=== PATIENT | female | born 1945 | race Caucasian/White ===

== ENCOUNTER 2023-05-14 10:32 | Inpatient (IN) | payer MEDICARE ==
[~2023-05-14] VITALS: Ht 160 cm; Wt 51.7 kg
[2023-05-14] MEDS ORDERED: ATOR10TA PO (11:11)
[2023-05-14] MEDS ORDERED: AMLO2.5T2 PO (11:11)
[2023-05-14] MEDS ORDERED: IV NORMAL SALINE 1000 ML BAG IV ONE (11:15)
[2023-05-14 11:31] LABS: BASOPHILS % (AUTO) 0.2 % (0.0-2.0); EOSINOPHILS % (AUTO) 0.2 % (0.0-7.0); HEMATOCRIT 45.8 % (31.2-41.9); HEMOGLOBIN 15.4 g/dL (10.9-14.3); LYMPHOCYTES # (AUTO) 1.2 K/uL (0.8-4.8); LYMPHOCYTES % (AUTO) 10.1 % (20.5-51.5); MEAN CORPUSCULAR HEMOGLOBIN 31.5 uug (24.7-32.8); MEAN CORPUSCULAR HGB CONC 34 g/dL (32.3-35.6); MEAN CORPUSCULAR VOLUME 93.8 fL (75.5-95.3); MONOCYTES # (AUTO) 0.9 K/uL (0.1-1.30); MONOCYTES % (AUTO) 7.8 % (0.0-11.0); NEUTROPHILS # (AUTO) 9.9 K/uL (1.8-8.9); NEUTROPHILS % (AUTO) 81.7 % (38.5-71.5); PLATELET COUNT (AUTO) 320 K/uL (179-408); RED BLOOD CELL COUNT(AUTO) 4.88 MIL/uL (3.63-4.92); RED CELL DISTRIBUTION WIDTH 14.3 % (12.3-17.7); WHITE BLOOD COUNT (AUTO) 12.1 K/uL (3.8-11.8)
[2023-05-14 11:39] LABS: DIFFERENTIAL COMMENT 1
[2023-05-14 11:41] LABS: CALCIUM 9.4 mg/dL (8.5-10.1); CARBON DIOXIDE 28 mmol/L (21-32); CHLORIDE 96 mmol/L (98-107); CREATININE 0.9 mg/dL (0.6-1.3); GLUCOSE 118 mg/dL (74-106); POTASSIUM 3.5 mmol/L (3.5-5.1); SODIUM SERUM 135 mmol/L (136-145); UREA NITROGEN, BLOOD 31 mg/dL (7-18)
[2023-05-14 12:03] LABS: ALANINE AMINOTRANSFERASE 17 U/L (14-59); ALKALINE PHOSPHATASE 82 U/L (50-136); ASPARTATE AMINOTRANSFERASE 20 U/L (15-37); BILIRUBIN,DIRECT 0.5 mg/dL (0.0-0.2); BILIRUBIN,TOTAL 2.2 mg/dL (0.2-1.0); LIPASE 42 U/L (16-77); TOTAL PROTEIN, SERUM 7.9 g/dL (6.4-8.2)
[2023-05-14] MEDS ORDERED: hydrALAZINE HCL 20 MG/1 ML VIAL ONE (14:38)
[2023-05-14] MEDS ORDERED: hydrALAZINE HCL 20 MG/1 ML VIAL IV ONE (14:45)
[2023-05-14] MEDS ORDERED: ONDANSETRON 4 MG/2 ML VIAL ONE (15:52)
[2023-05-14] MEDS ORDERED: MORPHINE SULFATE 4 MG/1 ML DISP.SYRIN ONE (15:52)
[2023-05-14] MEDS ORDERED: ONDANSETRON 4 MG/2 ML VIAL IV ONE (16:00)
[2023-05-14] MEDS ORDERED: MORPHINE SULFATE 4 MG/1 ML DISP.SYRIN IV STA (16:01)
[2023-05-14] MEDS ORDERED: ACETAMINOPHEN 650 MG SUPP.RECT RC PRN (18:00)
[2023-05-14] MEDS ORDERED: PIPERACILLIN SODIUM/TAZOBACTAM 3.375 G in IV DEXTROSE 5% 50 ML IV SCH (18:00)
[2023-05-14] MEDS ORDERED: ONDANSETRON 4 MG/2 ML VIAL IV PRN (18:00)
[2023-05-14] MEDS ORDERED: PIPERACILLIN SODIUM/TAZOBACTAM 3.375 G in IV DEXTROSE 5% 100 ML IV SCH (22:00)
[2023-05-14] MEDS ORDERED: PIPERACILLIN/TAZOBACTAM/D5W 50 ML IV ONE (23:31)
[2023-05-14] MEDS ORDERED: IV D5W-0.45% NS +20 KCL 1,000 ML IV ONE (23:32)
[2023-05-14] MEDS: POTASSIUM CHLORIDE 20 MEQ in IV D5 1/2 NS 1000 ML 1,000 ML IV PRN (23:49)
[2023-05-15] VITALS (11 sets, daily range): BP systolic 113–156; BP diastolic 48–87; TEMP 98–98.7; O2SAT 95–100
[2023-05-15 03:12] LABS: *BLOOD, URINE NEGATIVE (NEGATIVE); *CLARITY,URINE CLEAR (CLEAR); *COLOR,URINE YELLOW (YELLOW); *KETONES,URINE 1+ (NEGATIVE); *PROTEIN,URINE 1+ (NEGATIVE); *UROBILINOGEN,URINE 0.2 E.U./dl (NORMAL); LEUKOCYTE ESTERASE ,URINE NEGATIVE (NEGATIVE); NITRITE, URINE NEGATIVE (NEGATIVE); UGLUCOSE NEGATIVE (NEGATIVE)
[2023-05-15 04:07] LABS: *BILIRUBIN,URIN 1+ (NEGATIVE)
[2023-05-15 07:12] LABS: BASOPHILS % (AUTO) 0.4 % (0.0-2.0); EOSINOPHILS # (AUTO) 0.1 K/uL (0.0-0.7); EOSINOPHILS % (AUTO) 0.7 % (0.0-7.0); HEMATOCRIT 39.3 % (31.2-41.9); HEMOGLOBIN 13.2 g/dL (10.9-14.3); LYMPHOCYTES # (AUTO) 1.1 K/uL (0.8-4.8); LYMPHOCYTES % (AUTO) 13.3 % (20.5-51.5); MEAN CORPUSCULAR HEMOGLOBIN 31.7 uug (24.7-32.8); MEAN CORPUSCULAR HGB CONC 34 g/dL (32.3-35.6); MONOCYTES # (AUTO) 0.8 K/uL (0.1-1.30); MONOCYTES % (AUTO) 9.2 % (0.0-11.0); NEUTROPHILS # (AUTO) 6.6 K/uL (1.8-8.9); NEUTROPHILS % (AUTO) 76.4 % (38.5-71.5); PLATELET COUNT (AUTO) 265 K/uL (179-408); RED BLOOD CELL COUNT(AUTO) 4.18 MIL/uL (3.63-4.92); RED CELL DISTRIBUTION WIDTH 14.2 % (12.3-17.7); WHITE BLOOD COUNT (AUTO) 8.6 K/uL (3.8-11.8)
[2023-05-15 07:18] LABS: DIFFERENTIAL COMMENT 1
[2023-05-15 07:40] LABS: ALANINE AMINOTRANSFERASE 17 U/L (14-59); ALKALINE PHOSPHATASE 57 U/L (50-136); ASPARTATE AMINOTRANSFERASE 14 U/L (15-37); CALCIUM 8.6 mg/dL (8.5-10.1); CARBON DIOXIDE 25 mmol/L (21-32); CHLORIDE 105 mmol/L (98-107); CHOLESTEROL 128 mg/dL (<200); CREATININE 0.7 mg/dL (0.6-1.3); GLUCOSE 109 mg/dL (74-106); HDL CHOLESTEROL 61 mg/dL (40-60); MAGNESIUM 2.1 mg/dL (1.8-2.4); PHOSPHOROUS 3.4 mg/dL (2.5-4.9); POTASSIUM 3.4 mmol/L (3.5-5.1); SODIUM SERUM 139 mmol/L (136-145); TOTAL PROTEIN, SERUM 6.2 g/dL (6.4-8.2); TRIGLYCERIDES 77 MG/DL (30-150); UREA NITROGEN, BLOOD 19 mg/dL (7-18)
[2023-05-15] MEDS: PANTOPRAZOLE SODIUM 40 MG VIAL IV SCH (08:44)
[2023-05-15] MEDS: PIPERACILLIN SODIUM/TAZOBACTAM 3.375 G in IV DEXTROSE 5% 100 ML IV SCH ×2 (08:44→23:41)
[2023-05-15] MEDS ORDERED: ROCURONIUM BROMIDE 50 MG/5 ML VIAL ONE (12:57)
[2023-05-15] MEDS ORDERED: MIDAZOLAM HCL 2 MG/2 ML VIAL ONE (12:57)
[2023-05-15] MEDS ORDERED: FENTANYL CITRATE 100 MCG/2 ML AMPUL ONE (12:57)
[2023-05-15] MEDS ORDERED: BUPIVACAINE/EPI PF 0.5% 10 ML VIAL ONE (13:47)
[2023-05-15] MEDS ORDERED: LABETALOL HCL 100 MG/20 ML VIAL ONE (16:37)
[2023-05-15] MEDS ORDERED: hydrALAZINE HCL 20 MG/1 ML VIAL ONE (17:09)
[2023-05-15] MEDS: POTASSIUM CHLORIDE 50 ML IV SCH ×2 (18:14→22:08)
[2023-05-15] MEDS: MORPHINE SULFATE 2 MG/1 ML DISP.SYRIN IV PRN (22:22)
[2023-05-15] MEDS: POTASSIUM CHLORIDE 20 MEQ in IV D5 1/2 NS 1000 ML 1,000 ML IV PRN (23:42)
[2023-05-16] VITALS (7 sets, daily range): BP systolic 125–165; BP diastolic 70–80; TEMP 98–98.5; O2SAT 96–99
[2023-05-16] MEDS: PIPERACILLIN SODIUM/TAZOBACTAM 3.375 G in IV DEXTROSE 5% 100 ML IV SCH ×4 (02:03→23:04)
[2023-05-16] MEDS: MORPHINE SULFATE 2 MG/1 ML DISP.SYRIN IV PRN (02:43)
[2023-05-16 06:40] LABS: BASOPHILS % (AUTO) 0.1 % (0.0-2.0); EOSINOPHILS % (AUTO) 0.5 % (0.0-7.0); HEMATOCRIT 39.1 % (31.2-41.9); HEMOGLOBIN 13.2 g/dL (10.9-14.3); LYMPHOCYTES # (AUTO) 0.9 K/uL (0.8-4.8); LYMPHOCYTES % (AUTO) 9.1 % (20.5-51.5); MEAN CORPUSCULAR HEMOGLOBIN 31.7 uug (24.7-32.8); MEAN CORPUSCULAR HGB CONC 34 g/dL (32.3-35.6); MEAN CORPUSCULAR VOLUME 94.1 fL (75.5-95.3); MONOCYTES # (AUTO) 0.9 K/uL (0.1-1.30); MONOCYTES % (AUTO) 8.6 % (0.0-11.0); NEUTROPHILS # (AUTO) 8.5 K/uL (1.8-8.9); NEUTROPHILS % (AUTO) 81.7 % (38.5-71.5); PLATELET COUNT (AUTO) 264 K/uL (179-408); RED BLOOD CELL COUNT(AUTO) 4.15 MIL/uL (3.63-4.92); RED CELL DISTRIBUTION WIDTH 14.1 % (12.3-17.7); WHITE BLOOD COUNT (AUTO) 10.3 K/uL (3.8-11.8)
[2023-05-16 06:59] LABS: DIFFERENTIAL COMMENT 1
[2023-05-16 07:32] LABS: ALANINE AMINOTRANSFERASE 16 U/L (14-59); ALBUMIN 2.7 g/dL (3.4-5.0); ALKALINE PHOSPHATASE 53 U/L (50-136); ASPARTATE AMINOTRANSFERASE 10 U/L (15-37); BILIRUBIN,TOTAL 1.4 mg/dL (0.2-1.0); CALCIUM 8.2 mg/dL (8.5-10.1); CARBON DIOXIDE 25 mmol/L (21-32); CHLORIDE 105 mmol/L (98-107); CREATININE 0.8 mg/dL (0.6-1.3); GLUCOSE 134 mg/dL (74-106); MAGNESIUM 1.9 mg/dL (1.8-2.4); PHOSPHOROUS 3.2 mg/dL (2.5-4.9); SODIUM SERUM 139 mmol/L (136-145); TOTAL PROTEIN, SERUM 5.9 g/dL (6.4-8.2); UREA NITROGEN, BLOOD 12 mg/dL (7-18)
[2023-05-16] MEDS: PANTOPRAZOLE SODIUM 40 MG VIAL IV SCH (08:15)
[2023-05-16] MEDS: POTASSIUM CHLORIDE 20 MEQ in IV D5 1/2 NS 1000 ML 1,000 ML IV PRN (15:28)
[2023-05-17] VITALS (8 sets, daily range): BP systolic 66–161; BP diastolic 75–87; TEMP 97.8–98.5; O2SAT 95–100
[2023-05-17] MEDS: ENALAPRILAT DIHYDRATE 1.25 MG/1 ML VIAL IV PRN ×2 (04:52→16:07)
[2023-05-17 06:34] LABS: BASOPHILS % (AUTO) 0.2 % (0.0-2.0); EOSINOPHILS # (AUTO) 0.2 K/uL (0.0-0.7); EOSINOPHILS % (AUTO) 2.5 % (0.0-7.0); HEMATOCRIT 37.1 % (31.2-41.9); HEMOGLOBIN 12.4 g/dL (10.9-14.3); LYMPHOCYTES # (AUTO) 1.3 K/uL (0.8-4.8); LYMPHOCYTES % (AUTO) 13.5 % (20.5-51.5); MEAN CORPUSCULAR HEMOGLOBIN 31.5 uug (24.7-32.8); MEAN CORPUSCULAR HGB CONC 34 g/dL (32.3-35.6); MEAN CORPUSCULAR VOLUME 93.9 fL (75.5-95.3); MONOCYTES # (AUTO) 0.9 K/uL (0.1-1.30); MONOCYTES % (AUTO) 9.4 % (0.0-11.0); NEUTROPHILS # (AUTO) 7.3 K/uL (1.8-8.9); NEUTROPHILS % (AUTO) 74.4 % (38.5-71.5); PLATELET COUNT (AUTO) 239 K/uL (179-408); RED BLOOD CELL COUNT(AUTO) 3.95 MIL/uL (3.63-4.92); RED CELL DISTRIBUTION WIDTH 13.7 % (12.3-17.7); WHITE BLOOD COUNT (AUTO) 9.8 K/uL (3.8-11.8)
[2023-05-17 06:55] LABS: DIFFERENTIAL COMMENT 1
[2023-05-17] MEDS: PANTOPRAZOLE SODIUM 40 MG VIAL IV SCH (07:00)
[2023-05-17] MEDS: PIPERACILLIN SODIUM/TAZOBACTAM 3.375 G in IV DEXTROSE 5% 100 ML IV SCH ×2 (07:00→15:09)
[2023-05-17 07:04] LABS: ALANINE AMINOTRANSFERASE 10 U/L (14-59); ALBUMIN 2.5 g/dL (3.4-5.0); ALKALINE PHOSPHATASE 60 U/L (50-136); ASPARTATE AMINOTRANSFERASE 6 U/L (15-37); BILIRUBIN,TOTAL 1.5 mg/dL (0.2-1.0); CALCIUM 8.3 mg/dL (8.5-10.1); CARBON DIOXIDE 25 mmol/L (21-32); CHLORIDE 100 mmol/L (98-107); CREATININE 0.6 mg/dL (0.6-1.3); GLUCOSE 101 mg/dL (74-106); MAGNESIUM 1.8 mg/dL (1.8-2.4); PHOSPHOROUS 2.1 mg/dL (2.5-4.9); POTASSIUM 3.5 mmol/L (3.5-5.1); SODIUM SERUM 134 mmol/L (136-145); TOTAL PROTEIN, SERUM 5.8 g/dL (6.4-8.2); UREA NITROGEN, BLOOD 6 mg/dL (7-18)
[2023-05-17] MEDS: POTASSIUM CHLORIDE 20 MEQ in IV D5 1/2 NS 1000 ML 1,000 ML IV PRN (07:52)
[2023-05-17] MEDS ORDERED: POTASSIUM PHOSPHATE MM 7.5 MMOL in IV NORMAL SALINE 97.5 ML IV ONE ×2 (10:00→10:45)
[2023-05-18] MEDS: PIPERACILLIN SODIUM/TAZOBACTAM 3.375 G in IV DEXTROSE 5% 100 ML IV SCH ×3 (01:53→15:34)
[2023-05-18 05:20] VITALS: BP 149/74; TEMP 98.3; O2SAT 97
[2023-05-18] MEDS: PANTOPRAZOLE SODIUM 40 MG VIAL IV SCH (09:02)
[2023-05-18] MEDS ORDERED: AMLODIPINE 5 MG TABLET PO SCH (11:30)
[2023-05-18] MEDS ORDERED: AMLO-212 PO (12:07)
[2023-05-18] MEDS ORDERED: ONDA4VIA23 IV (12:07)
[2023-05-18] MEDS ORDERED: ACID1TAB4 PO (12:07)
[2023-05-18] MEDS ORDERED: PANT40TA2 PO (12:07)
[2023-05-18] MEDS ORDERED: ACET-2154 PO (12:07)
[2023-05-18 13:00] LABS: BASOPHILS % (AUTO) 0.5 % (0.0-2.0); EOSINOPHILS # (AUTO) 0.2 K/uL (0.0-0.7); EOSINOPHILS % (AUTO) 1.9 % (0.0-7.0); HEMATOCRIT 39.6 % (31.2-41.9); HEMOGLOBIN 13.4 g/dL (10.9-14.3); LYMPHOCYTES # (AUTO) 1.2 K/uL (0.8-4.8); LYMPHOCYTES % (AUTO) 13.5 % (20.5-51.5); MEAN CORPUSCULAR HEMOGLOBIN 31.7 uug (24.7-32.8); MEAN CORPUSCULAR HGB CONC 34 g/dL (32.3-35.6); MEAN CORPUSCULAR VOLUME 93.6 fL (75.5-95.3); MONOCYTES # (AUTO) 0.7 K/uL (0.1-1.30); MONOCYTES % (AUTO) 7.8 % (0.0-11.0); NEUTROPHILS # (AUTO) 6.7 K/uL (1.8-8.9); NEUTROPHILS % (AUTO) 76.3 % (38.5-71.5); PLATELET COUNT (AUTO) 262 K/uL (179-408); RED BLOOD CELL COUNT(AUTO) 4.23 MIL/uL (3.63-4.92); RED CELL DISTRIBUTION WIDTH 13.6 % (12.3-17.7); WHITE BLOOD COUNT (AUTO) 8.8 K/uL (3.8-11.8)
[2023-05-18 13:11] LABS: CALCIUM 8.7 mg/dL (8.5-10.1); CARBON DIOXIDE 23 mmol/L (21-32); CHLORIDE 100 mmol/L (98-107); CREATININE 0.6 mg/dL (0.6-1.3); GLUCOSE 126 mg/dL (74-106); POTASSIUM 3.1 mmol/L (3.5-5.1); SODIUM SERUM 133 mmol/L (136-145); UREA NITROGEN, BLOOD 6 mg/dL (7-18)
[2023-05-18 13:17] LABS: DIFFERENTIAL COMMENT 1
[2023-05-18 13:43] VITALS: BP 160/80; TEMP 97.1; O2SAT 96
[2023-05-18 15:53] VITALS: BP 138/67; TEMP 98; O2SAT 96
[2023-05-19] MEDS ORDERED: PANTOPRAZOLE SODIUM 40 MG TABLET.DR PO SCH (07:00)
[2023-05-19] MEDS ORDERED: AMLO5TAB4 PO (11:21)
[2023-05-19] MEDS ORDERED: ATOR10TA PO (11:21)
== END 2023-05-18 19:00 | DRG 330 ==
LOC: ER 10:32 → TRANSITION 15:30 → MEDSURG3 20:24 → TELE3 20:47 → MEDSURG3 05-17 13:00 → MED 05-17 19:15 → MEDSURG3 05-17 19:34
PROVIDERS: ADMIT Internal Medicine; ATTEND Internal Medicine
PROC: 0YQ70ZZ Repair Right Femoral Region, Open Approach (ICD-10-PCS; principal; 2023-05-15)
PROC: 0DB80ZZ Excision of Small Intestine, Open Approach (ICD-10-PCS; 2023-05-15)
PROC: 0YJ74ZZ Inspection of Right Femoral Region, Percutaneous Endoscopic Approach (ICD-10-PCS; 2023-05-15)
DX: K41.30 Unilateral femoral hernia, with obstruction, without gangrene, not specified as recurrent (principal); D68.59 Other primary thrombophilia; K40.30 Unilateral inguinal hernia, with obstruction, without gangrene, not specified as recurrent; E87.1 Hypo-osmolality and hyponatremia; K55.9 Vascular disorder of intestine, unspecified; R17 Unspecified jaundice; J98.11 Atelectasis; E86.0 Dehydration; Z74.09 Other reduced mobility; E78.5 Hyperlipidemia, unspecified; Z79.899 Other long term (current) drug therapy; Z96.641 Presence of right artificial hip joint; Z53.31 Laparoscopic surgical procedure converted to open procedure; I70.8 Atherosclerosis of other arteries; I10 Essential (primary) hypertension; I70.0 Atherosclerosis of aorta; F17.210 Nicotine dependence, cigarettes, uncomplicated; K44.9 Diaphragmatic hernia without obstruction or gangrene; I44.1 Atrioventricular block, second degree; D72.829 Elevated white blood cell count, unspecified; R79.89 Other specified abnormal findings of blood chemistry; M16.11 Unilateral primary osteoarthritis, right hip; R53.1 Weakness; B99.9 Unspecified infectious disease
CPT/HCPCS: 36415; 71045; 83605; 83690; 83735; 84100; 84443; 84484; 85025; 87040; 93005; A4606; A4649; A4663; A6209; C9113; G0378; J0360; J2250; J2270; J2405; J2543; J3010; J3480; J3490; J7040

== ENCOUNTER 2023-05-18 15:17 | Inpatient (IN) | payer MEDICARE ==
[~2023-05-18] VITALS: Ht 160 cm; Wt 46.7 kg
[~2023-05-18 15:17] MED LIST: ACET-2154 PO; ACID1TAB4 PO; AMLO-212 PO; AMLO2.5T2 PO; ATOR10TA PO; ONDA4VIA23 IV; PANT40TA2 PO
[2023-05-18] MEDS ORDERED: ONDANSETRON 4 MG/2 ML VIAL IV PRN (20:00)
[2023-05-18] MEDS ORDERED: REMEDY ESSENTIAL ZINC PASTE 113 GM TOP SCH (21:45)
[2023-05-18] MEDS: ACIDOPHILUS/BULGARICUS CHEW TAB PO SCH (21:58)
[2023-05-19] MEDS ORDERED: ONDANSETRON ODT 4 MG TAB.RAPDIS SL PRN (00:15)
[2023-05-19 08:08] VITALS: BP 148/76; TEMP 98.3; O2SAT 96
[2023-05-19] MEDS ORDERED: AMLODIPINE 5 MG TABLET PO SCH (09:00)
[2023-05-19] MEDS ORDERED: PANTOPRAZOLE SODIUM 40 MG TABLET.DR PO SCH (09:00)
[2023-05-19] MEDS: ACIDOPHILUS/BULGARICUS CHEW TAB PO SCH ×2 (09:14→21:55)
[2023-05-19] MEDS: ACETAMINOPHEN 325 MG TABLET PO PRN (09:20)
[2023-05-19] MEDS ORDERED: ATOR10TA PO (11:21)
[2023-05-19] MEDS ORDERED: AMLO5TAB4 PO (11:21)
[2023-05-19] MEDS ORDERED: ACETAMINOPHEN 650 MG SUPP.RECT RC PRN (12:15)
[2023-05-19] MEDS ORDERED: ENALAPRILAT DIHYDRATE 1.25 MG/1 ML VIAL IV PRN (12:15)
[2023-05-19] MEDS ORDERED: ONDANSETRON 4 MG/2 ML VIAL IV PRN (12:30)
[2023-05-19] MEDS: PIPERACILLIN SODIUM/TAZOBACTAM 3.375 G in IV DEXTROSE 5% 100 ML IV SCH ×2 (13:05→21:55)
[2023-05-19] MEDS: POTASSIUM CHLORIDE 20 MEQ in IV D5 1/2 NS 1000 ML 1,000 ML IV PRN (13:06)
[2023-05-19 16:00] VITALS: BP 126/79; TEMP 97.7; O2SAT 96
[2023-05-19 21:03] VITALS: BP 154/92; TEMP 98; O2SAT 95
[2023-05-20] MEDS: PIPERACILLIN SODIUM/TAZOBACTAM 3.375 G in IV DEXTROSE 5% 100 ML IV SCH ×3 (04:40→21:29)
[2023-05-20] MEDS: PANTOPRAZOLE SODIUM 40 MG TABLET.DR PO SCH (06:34)
[2023-05-20 06:48] LABS: BASOPHILS % (AUTO) 0.3 % (0.0-2.0); EOSINOPHILS # (AUTO) 0.2 K/uL (0.0-0.7); EOSINOPHILS % (AUTO) 2.1 % (0.0-7.0); HEMATOCRIT 35.2 % (31.2-41.9); HEMOGLOBIN 11.8 g/dL (10.9-14.3); LYMPHOCYTES % (AUTO) 13.9 % (20.5-51.5); MEAN CORPUSCULAR HEMOGLOBIN 31.3 uug (24.7-32.8); MEAN CORPUSCULAR HGB CONC 34 g/dL (32.3-35.6); MEAN CORPUSCULAR VOLUME 93.5 fL (75.5-95.3); MONOCYTES # (AUTO) 0.8 K/uL (0.1-1.30); MONOCYTES % (AUTO) 10.5 % (0.0-11.0); NEUTROPHILS # (AUTO) 5.3 K/uL (1.8-8.9); NEUTROPHILS % (AUTO) 73.2 % (38.5-71.5); PLATELET COUNT (AUTO) 268 K/uL (179-408); RED BLOOD CELL COUNT(AUTO) 3.76 MIL/uL (3.63-4.92); RED CELL DISTRIBUTION WIDTH 13.8 % (12.3-17.7); WHITE BLOOD COUNT (AUTO) 7.2 K/uL (3.8-11.8)
[2023-05-20 07:34] LABS: CALCIUM 8.1 mg/dL (8.5-10.1); CARBON DIOXIDE 25 mmol/L (21-32); CHLORIDE 103 mmol/L (98-107); CREATININE 0.6 mg/dL (0.6-1.3); GLUCOSE 117 mg/dL (74-106); POTASSIUM 3.3 mmol/L (3.5-5.1); SODIUM SERUM 137 mmol/L (136-145); UREA NITROGEN, BLOOD 7 mg/dL (7-18)
[2023-05-20 07:58] LABS: DIFFERENTIAL COMMENT 1
[2023-05-20 08:00] VITALS: BP 167/83; TEMP 98.9; O2SAT 93
[2023-05-20] MEDS ORDERED: AMLODIPINE 5 MG TABLET PO ONE (09:00)
[2023-05-20] MEDS: ACETAMINOPHEN 325 MG TABLET PO PRN (09:02)
[2023-05-20] MEDS: ACIDOPHILUS/BULGARICUS CHEW TAB PO SCH ×2 (09:02→21:29)
[2023-05-20] MEDS ORDERED: POTASSIUM CHLORIDE 20 MEQ TAB.PRT.SR PO ONE (09:15)
[2023-05-20 11:23] VITALS: BP 152/87; TEMP 97.7; O2SAT 97
[2023-05-20 15:48] VITALS: BP 150/89; TEMP 97.2; O2SAT 92
[2023-05-20] MEDS: POTASSIUM CHLORIDE 20 MEQ in IV D5 1/2 NS 1000 ML 1,000 ML IV PRN (16:50)
[2023-05-20 20:00] VITALS: TEMP 98.5
[2023-05-21] MEDS: PIPERACILLIN SODIUM/TAZOBACTAM 3.375 G in IV DEXTROSE 5% 100 ML IV SCH ×2 (04:21→13:23)
[2023-05-21] MEDS: PANTOPRAZOLE SODIUM 40 MG TABLET.DR PO SCH (06:25)
[2023-05-21 07:11] LABS: CARBON DIOXIDE 25 mmol/L (21-32); CHLORIDE 103 mmol/L (98-107); CREATININE 0.7 mg/dL (0.6-1.3); GLUCOSE 101 mg/dL (74-106); POTASSIUM 3.5 mmol/L (3.5-5.1); SODIUM SERUM 138 mmol/L (136-145); UREA NITROGEN, BLOOD 6 mg/dL (7-18)
[2023-05-21 07:29] LABS: CALCIUM 8.5 mg/dL (8.5-10.1)
[2023-05-21 07:30] VITALS: BP 168/87; TEMP 98.8; O2SAT 96
[2023-05-21] MEDS: ACIDOPHILUS/BULGARICUS CHEW TAB PO SCH ×2 (09:06→20:42)
[2023-05-21] MEDS: AMLODIPINE 2.5 MG TABLET PO SCH (09:07)
[2023-05-21 15:16] VITALS: BP 126/81; TEMP 97.8; O2SAT 94
[2023-05-21 21:29] VITALS: BP 139/76; TEMP 98.3
[2023-05-22] MEDS: PANTOPRAZOLE SODIUM 40 MG TABLET.DR PO SCH (06:01)
[2023-05-22 08:00] VITALS: TEMP 97.6
[2023-05-22] MEDS: AMLODIPINE 2.5 MG TABLET PO SCH (08:10)
[2023-05-22] MEDS: ACIDOPHILUS/BULGARICUS CHEW TAB PO SCH ×2 (08:10→20:23)
[2023-05-22 16:04] VITALS: TEMP 97.8
[2023-05-22 20:00] VITALS: BP 148/73; TEMP 97.9; O2SAT 98
[2023-05-23 04:44] VITALS: BP 157/86; TEMP 97.8; O2SAT 94
[2023-05-23] MEDS: PANTOPRAZOLE SODIUM 40 MG TABLET.DR PO SCH (06:10)
[2023-05-23 08:33] VITALS: BP 156/81; TEMP 98.4; O2SAT 95
[2023-05-23] MEDS: ACIDOPHILUS/BULGARICUS CHEW TAB PO SCH ×2 (09:18→20:46)
[2023-05-23] MEDS: AMLODIPINE 2.5 MG TABLET PO SCH (09:18)
[2023-05-23] MEDS ORDERED: LOPERAMIDE HCL 2 MG CAPSULE PO PRN (14:45)
[2023-05-23 15:42] VITALS: BP 161/54; TEMP 98.3; O2SAT 94
[2023-05-23 20:20] VITALS: BP 149/68; TEMP 98.4; O2SAT 96
[2023-05-24 04:18] VITALS: BP 180/67; TEMP 98.4; O2SAT 95
[2023-05-24] MEDS: PANTOPRAZOLE SODIUM 40 MG TABLET.DR PO SCH (06:24)
[2023-05-24 08:00] VITALS: BP 169/83; TEMP 98.4; O2SAT 93
[2023-05-24] MEDS: AMLODIPINE 2.5 MG TABLET PO SCH (08:23)
[2023-05-24] MEDS: ACIDOPHILUS/BULGARICUS CHEW TAB PO SCH ×2 (08:23→20:38)
[2023-05-24 15:41] VITALS: BP 113/60; TEMP 99; O2SAT 96
[2023-05-24 20:00] VITALS: BP 130/61; TEMP 98.5; O2SAT 94
[2023-05-25 06:00] VITALS: BP 148/65; TEMP 98.1; O2SAT 94
[2023-05-25] MEDS: PANTOPRAZOLE SODIUM 40 MG TABLET.DR PO SCH (06:11)
[2023-05-25 07:32] VITALS: BP 163/91; TEMP 98.3; O2SAT 98
[2023-05-25] MEDS: ACIDOPHILUS/BULGARICUS CHEW TAB PO SCH ×2 (08:18→20:13)
[2023-05-25] MEDS: AMLODIPINE 5 MG TABLET PO SCH (08:30)
[2023-05-25] MEDS ORDERED: AMLODIPINE 2.5 MG TABLET PO SCH (09:00)
[2023-05-25] MEDS ORDERED: CLONIDINE HCL 0.1 MG TABLET PO PRN (09:30)
[2023-05-25 10:56] VITALS: BP 156/65
[2023-05-25 15:56] VITALS: BP 108/64; TEMP 97.6; O2SAT 94
[2023-05-25 20:00] VITALS: BP 125/68; TEMP 98.6; O2SAT 96
[2023-05-26 04:00] VITALS: BP 128/52; TEMP 98.4; O2SAT 96
[2023-05-26] MEDS: PANTOPRAZOLE SODIUM 40 MG TABLET.DR PO SCH (06:10)
[2023-05-26] MEDS: ACIDOPHILUS/BULGARICUS CHEW TAB PO SCH ×2 (08:15→20:57)
[2023-05-26] MEDS: AMLODIPINE 5 MG TABLET PO SCH (08:15)
[2023-05-26 08:44] VITALS: BP 156/74; TEMP 98.3; O2SAT 95
[2023-05-26 15:43] VITALS: BP 149/74; TEMP 98.3; O2SAT 97
[2023-05-26 20:00] VITALS: BP 127/59; TEMP 99; O2SAT 95
[2023-05-27 04:00] VITALS: BP 126/55; TEMP 98.9; O2SAT 96
[2023-05-27] MEDS: PANTOPRAZOLE SODIUM 40 MG TABLET.DR PO SCH (06:17)
[2023-05-27 07:50] VITALS: BP 169/89; TEMP 98.7; O2SAT 95
[2023-05-27] MEDS: AMLODIPINE 5 MG TABLET PO SCH (09:43)
[2023-05-27] MEDS: ACIDOPHILUS/BULGARICUS CHEW TAB PO SCH ×2 (09:43→20:15)
[2023-05-27 16:22] VITALS: BP 137/82; TEMP 98.2; O2SAT 98
[2023-05-27 20:17] VITALS: BP 132/64; TEMP 98.9; O2SAT 95
[2023-05-28 04:37] VITALS: BP 150/70; TEMP 98.6; O2SAT 95
[2023-05-28] MEDS: PANTOPRAZOLE SODIUM 40 MG TABLET.DR PO SCH (06:09)
[2023-05-28 09:00] VITALS: BP 145/60; TEMP 98.5; O2SAT 95
[2023-05-28] MEDS: AMLODIPINE 5 MG TABLET PO SCH (09:00)
[2023-05-28] MEDS: ACIDOPHILUS/BULGARICUS CHEW TAB PO SCH ×2 (09:00→20:01)
[2023-05-28 12:00] VITALS: BP 133/70; TEMP 98.7; O2SAT 96
[2023-05-28 16:31] VITALS: BP 126/84; TEMP 98.5
[2023-05-28 20:31] VITALS: BP 127/79; TEMP 98.4; O2SAT 93
[2023-05-29 04:38] VITALS: BP 146/81; TEMP 98.4; O2SAT 95
[2023-05-29] MEDS: PANTOPRAZOLE SODIUM 40 MG TABLET.DR PO SCH (06:13)
[2023-05-29 07:27] VITALS: BP 148/86; TEMP 98.2; O2SAT 94
[2023-05-29] MEDS: ACIDOPHILUS/BULGARICUS CHEW TAB PO SCH (09:50)
[2023-05-29 09:51] VITALS: BP 148/86
[2023-05-29] MEDS: AMLODIPINE 5 MG TABLET PO SCH (09:51)
== END 2023-05-29 13:30 | disposition home health service (06) | DRG 949 ==
PROVIDERS: ADMIT Physical Medicine & Rehabilitation Pain Medicine; ATTEND Physical Medicine & Rehabilitation Pain Medicine
DX: Z48.815 Encounter for surgical aftercare following surgery on the digestive system (principal); D68.59 Other primary thrombophilia; J98.11 Atelectasis; R17 Unspecified jaundice; K41.30 Unilateral femoral hernia, with obstruction, without gangrene, not specified as recurrent; I10 Essential (primary) hypertension; K44.9 Diaphragmatic hernia without obstruction or gangrene; R79.89 Other specified abnormal findings of blood chemistry; I70.0 Atherosclerosis of aorta; R53.1 Weakness; M19.90 Unspecified osteoarthritis, unspecified site; Z87.891 Personal history of nicotine dependence; E78.5 Hyperlipidemia, unspecified
CPT/HCPCS: 36415; 85025; 97535-GO-CO; J2543; J3480; J3490